=== PATIENT | female | born 1970 | race Two or more races ===

== ENCOUNTER → 2024-07-09 | Outpatient (CLI) | payer MEDICAID, SELFPAY ==
--- NOTE | 2024-07-09 | XR_ITS ---
Examination: Upper GI series with KUB Fluoroscopy 15 spot fluoroscopic films of the esophagus and stomach AP RPO abdomen films Exam date and time: February 07, 2024 0950 hours INDICATIONS: Chest congestion postnasal drainage 2 months TECHNIQUE AND FINDINGS: Transcribing Operators Supervisor AP supine abdomen single view Patient swallowed thin barium with 15 spot films obtained of the esophagus stomach and duodenal bulb and sweep Fluoroscopy 0.20 minutes Primary peristaltic esophageal waves Mild gastroesophageal reflux There is no stricture at the gastroesophageal junction No gastric mass deformity or ulceration Duodenal bulb expands symmetrically Duodenal sweep unremarkable IMPRESSION: Mild gastroesophageal reflux, there is no stricture at the gastroesophageal junction No gastric mass deformity or ulceration Negative for duodenitis
== END | disposition home or self-care (01) ==
PROVIDERS: PCP Registered Nurse Community Health; Referring Provider Registered Nurse Community Health; Visit Provider Registered Nurse Community Health
DX: K21.9 Gastro-esophageal reflux disease without esophagitis (principal)
CPT/HCPCS: 74240

== ENCOUNTER → 2024-08-21 | Outpatient (CLI) | payer MEDICAID, SELFPAY ==
[2024-08-20 16:56] LABS: HCG Qualitative,Urine Negative
--- NOTE | 2024-08-21 11:00 | XR_ITS ---
Examination: CT chest with intravenous contrast 2-D sagittal and coronal reconstructions Exam date and time: August 21, 2024 1205 hours INDICATIONS: Coughing one year shortness of breath CTDI:vol (mGy) 9.12 DLP: (mGycm) 334 Technique: Multiple axial sections of the thorax have been obtained. Sections have been obtained, 3 mm slice thickness. Mediastinal and lung density settings have been obtained. Intravenous contrast administered, 60 cc [id number]-370. 2-D sagittal, coronal images obtained. Low dose protocols were performed. One or more of the following dose reduction techniques were used; automated exposure control, adjustment of the mA and/or KV according to patient size, use of iterative reconstruction technique. Findings: No thoracic aortic aneurysmal dilatation Pulmonary artery segments are not enlarged No paratracheal tracheobronchial or bronchopulmonary adenopathy No pneumonia, pulmonary edema, pleural disease or pulmonary mass lesions Diffuse significant fatty infiltration throughout the liver Contracted gallbladder No pancreatic mass IMPRESSION: No mediastinal lymphadenopathy No pneumonia, pulmonary edema, pleural disease or pulmonary nodules
== END | disposition home or self-care (01) ==
PROVIDERS: PCP Registered Nurse Community Health; Referring Provider Registered Nurse Community Health; Visit Provider Registered Nurse Community Health
DX: R05.9 Cough, unspecified (principal); Z32.00 Encounter for pregnancy test, result unknown
CPT/HCPCS: 71260; 81025; A4649; Q9967

== ENCOUNTER 2025-01-26 09:58 | Emergency (ER) | payer MEDICAID, SELFPAY ==
[2025-01-26 11:01] VITALS: BP 134/87; PULSE 94; RESP 14; TEMP 37.1; O2SAT 99
--- NOTE | 2025-01-26 11:10 | XR_ITS ---
Examination: CT abdomen and pelvis without contrast. Coronal 3-D reconstructions. Sagittal 2-D reconstructions. Date and time of exam:January 26, 2025 1126 hrs. Indications: Mid abdominal pain beginning 2 weeks ago Comparison: 04/22/2013 CTDI: vol (mGy): 11.6 DLP: (mGycm): 585 Technique: Axial images of the abdomen have been obtained, 3 mm slice thickness Intravenous contrast material has not been administered. Low dose protocols were performed. One or more of the following dose reduction techniques were used; automated exposure control, adjustment of the mA and/or KV according to patient size, use of iterative reconstruction technique. Findings: No focal liver or splenic lesions No gallstones No pancreatic or adrenal mass No renal or ureteral calculi, no hydronephrosis Aorta normal size No pericecal inflammatory change Normal appendix No bowel obstruction No diverticulitis Bilateral pelvic cyst, on the right side 4 cm, on the left side 3.5 cm Urinary bladder intact Impression: No renal or ureteral calculi, no hydronephrosis Normal appendix No bowel obstruction No diverticulitis Bilateral pelvic cysts, consider pelvic sonography follow-up
--- NOTE | 2025-01-26 11:11 | EDNOTE_ITS ---
ED Abdominal Pain RME/HPI General Chief Complaint: Nausea/Vomiting/Diarrhea Stated complaint: N/VOMITING X2WKS Time seen by provider: 01/26/25 10:52 Arrival date/time: 01/26/25 09:58 This is a case of a 54-year-old female who came into the emergency room due to abdominal pain mainly on the epigastric area burning in character associated with nausea vomiting for 2 weeks worsening of the symptoms this patient decided to start consult here in the emergency room Limitations: no limitations Related Data Previous Rx's ?Medication ?Instructions ?Recorded famotidine 20 mg tablet 20 mg PO QDAY 30 days #30 ta bs 01/26/25 hydrocodone 5 mg-acetaminophen 325 1 tab PO Q6H PRN pa in #10 tabs 01/26/25 mg tablet omeprazole 40 mg capsule,delayed 40 mg PO QDAY 10 days #10 caps 01/26/25 release ondansetron 4 mg disintegrating 4 mg PO Q8H PRN nausea and 01/26/25 tablet vomiting #20 tabs Allergies Allergy/AdvReac Type Severity Reaction Status Date / Time No Known Allergies Allergy Unverified 01/26/25 11:11 Review of Systems Review of Systems Systems Reviewed: All systems reviewed, normal except as documented Constitutional Constitutional: Reports system reviewed and no additional complaints, except as documented ENT Ears, Nose, Mouth, and Throat: Denies dysphagia and Denies odynophagia Cardiovascular Cardiovascular: Reports system reviewed and no additional complaints, except as documented and Reports as per HPI Respiratory Respiratory: Reports system reviewed and no additional complaints, except as documented and Reports as per HPI Gastrointestinal Gastrointestinal: Reports system reviewed and no additional complaints, except as documented, Reports as per HPI, Reports abdominal pain, Denies belching, Denies bloating, Denies change in bowel habits, Denies change in stool character, Denies coffee ground emesis, Denies constipation, Denies cramping, Denies diarrhea, Denies dyspepsia, Denies dysphagia, Denies early satiety, Denies excessive flatus, Denies fecal incontinence, Denies heartburn, Denies hematemesis, Denies hematochezia, Denies loose stools, Denies melena, Reports nausea, Denies odynophagia, Denies tenesmus and Reports vomiting Musculoskeletal Musculoskeletal: Reports system reviewed and no additional complaints, except as documented and Reports as per HPI Neurologic Neurologic: Reports system reviewed and no additional complaints, except as documented and Reports as per HPI Past Medical History Social History SMOKING STATUS: Never smoker ED Exam General Limitations: Present no limitations General appearance: Present alert and in no apparent distress Head Head exam: Present atraumatic, normocephalic and normal inspection Eye Eye exam: Present normal appearance, PERRL and EOMI ENT ENT exam: Present normal exam, normal oropharynx and mucous membranes moist Neck Neck exam: Present normal inspection, full ROM and trachea midline Chest Chest inspection: Present normal inspection and symmetric chest wall rise Respiratory Respiratory exam: Present normal lung sounds bilaterally; Absent respiratory distress, wheezes, stridor, accessory muscle use or prolonged expiratory phase Cardiovascular Cardiovascular exam: Present regular rate, normal rhythm and normal heart sounds; Absent bradycardia, tachycardia, irregular rhythm or systolic murmur Abdominal Exam Abdominal exam: Present soft, tenderness (Mild tenderness on the epigastric area no guarding no rebound no rigidity negative psoas negative straight or negative Rovsing's negative McBurney's negative Gupta sign negative CVA tenderness) and normal bowel sounds; Absent distention, guarding, rebound, rigidity, diminished bowel sounds, hyperactive bowel sounds, hypoactive bowel sounds, organomegaly, psoas sign, obturator sign, Gupta's sign, Rovsing's sign or tenderness at McBurney's Point Abdominal tenderness: Present epigastrium and mild Extremities Exam Extremities exam: Present normal inspection and full ROM Back Exam Back exam: Present normal inspection and full ROM Neurological Exam Neurological exam: Present alert, oriented X3, CN II-XII intact, normal gait and reflexes normal; Absent motor sensory deficit Psychiatric Psychiatric exam: Present normal affect and normal mood Skin Skin exam: Present warm, dry, intact and normal color Course Quality Measures none Orders Category Date Time Status CT abdomen pelvis wo con Stat Exams 01/26/25 11:10 Completed US pelvic complete Stat Exams 01/26/25 13:52 Completed CBC Stat Lab 01/26/25 11:42 Completed Comprehensive Metabolic Panel Stat Lab 01/26/25 11:42 Completed HCG Qualitative,Urine Stat Lab 01/26/25 11:54 Completed Lipase Stat Lab 01/26/25 11:42 Completed Urinalysis Stat Lab 01/26/25 11:54 Completed Famotidine [Pepcid] Med 01/26/25 11:10 Discontinued 40 mg PO X1 ONE Ketorolac Inj [Toradol Inj] Med 01/26/25 16:17 Discontinued 30 mg IM X1 ONE Lidocaine 2% Viscous [Xylocaine 2% Viscous] Med 01/26/25 11:10 Discontinued 15 ml PO X1 ONE Ondansetron Odt [Zofran Odt] Med 01/26/25 11:10 Discontinued 4 mg PO X1 ONE Ondansetron Odt [Zofran Odt] Med 01/26/25 16:17 Discontinued 4 mg PO X1 ONE mg Hyd/Al Hyd/Liam Susp [Maalox Susp] Med 01/26/25 11:10 Discontinued 30 ml PO X1 ONE Vital Signs Vital signs: Vital Signs Temperature 98.7 F 01/26/25 11:01 Pulse Rate 94 01/26/25 11:01 Respiratory Rate 14 01/26/25 11:01 Blood Pressure 134/87 H 01/26/25 11:01 Pulse Oximetry (%) 99 01/26/25 11:01 Oxygen Delivery Method Room Air 01/26/25 11:01 Oxygen saturation is 99% in room air normal Abdominal Pain MDM MDM Narrative MDM Narrative:: This is a case of a 54-year-old female who came into the emergency room due to abdominal pain mainly on the epigastric area burning in character associated with nausea vomiting for 2 weeks worsening of the symptoms this patient decided to start consult here in the emergency room physical examination patient is awake alert oriented not in distress nontoxic looking patient is not febrile not tachycardic not tachypneic not hypoxic abdominal exam is benign nonsurgical mild tenderness in the epigastric area no guarding no rebound no rigidity negative psoas negative straight or negative Rovsing's negative McBurney's negative Gupta sign negative CVA tenderness blood test showed no leukocytosis no anemia kidney and liver function is normal no electrolyte imbalance patient urinalysis is normal lipase is normal patient is not patient CT scan showed normal except for pelvic cysts ultrasound showed noted to have right ovarian cyst patient was given a GI cocktail and Zofran still with pain thus followed with Toradol and Zofran again patient condition markedly improved and improved and resolved patient will follow-up with PCP in 2 days for reevaluation and to be referred to GI consult for gastritis for possible EGD modified diet was advised patient will also see OB adult neuropsychologist for ovarian cyst for any worsening symptoms or any emergent concerns she will return to the emergency room immediately or call 911 patient was prescribed with omeprazole and Pepcid for gastritis Zofran for vomiting and [place] for pain Patient was discharged with comfortable condition walking with stable gait. Patient verbalized no further complains explained diagnosis and answered patient question. Patient is comfortable with the proposed management plan including the need to follow up with his/her primary care physician and any specialist if applicable Discussed patient for any urgent condition or worsening sx, He/She needed to go to emergency room immediately or call 911. Patient acknowledge the responsibility to follow up as instructed and to monitor her/his symptoms. For any persistence of the symptoms for more than 3-5 days return precaution advised. Discussed the result of the test and was given printed discharge instruction Patient data External records reviewed:: [facility] [place] previous records Clinical information provided by:: patient Social determinants that could affect healthcare access:: none Patient has the following chronic illnesses:: None How is presenting disease/condition affected by chronic disease/condition?: no chronic disease Evaluation data The following diagnostics were reviewed and interpreted by me:: lab results and radiology exam(s) Lab and/or radiology exams considered but not ordered:: Reviewed Interpretation Summary: None Medications / Prescriptions Medications or Prescriptions considered but not ordered:: Given Medication administrations:: Medication Administration History Discontinued Medications Al Hydrox/Mg Hydrox/Simethicone (Mg Hyd/Al Hyd/Liam (Maalox Reg) Susp 30 Ml Udc) 30 ml PO X1 ONE Stop: 01/26/25 11:11 Last Admin: 01/26/25 11:15 Dose: 30 ml Documented By: OLEKSANDR Famotidine (Famotidine 20 Mg Tablet) 40 mg PO X1 ONE Stop: 01/26/25 11:11 Last Admin: 01/26/25 11:15 Dose: 40 mg Documented By: OLEKSANDR Ketorolac Tromethamine (Ketorolac Inj 60 Mg/2 Ml Vial) 30 mg IM X1 ONE Stop: 01/26/25 16:18 Lidocaine HCl (Lidocaine Viscous 2% 15 Ml Udc) 15 ml PO X1 ONE Stop: 01/26/25 11:11 Last Admin: 01/26/25 11:18 Dose: 15 ml Documented By: OLEKSANDR Ondansetron HCl (Ondansetron Odt 4 Mg Tabrap) 4 mg PO X1 ONE; Protocol Stop: 01/26/25 11:11 Last Admin: 01/26/25 11:15 Dose: 4 mg Documented By: OLEKSANDR Ondansetron HCl (Ondansetron Odt 4 Mg Tabrap) 4 mg PO X1 ONE; Protocol Stop: 01/26/25 16:18 Given Consultations Consultation(s) initiated? (list below): No Diagnosis Differential diagnosis abdominal pain: abdominal pain, acute appendicitis, calculus of kidney and diverticulitis Most likely diagnosis given after review of the tests above:: Gastritis ovarian cyst Admission Indicated Admission indicated?: not indicated Explain why admission is indicated or not indicated:: Not indicated Admission Request Was there a request for admission?: No Admission Attestation Admission request attestation: Not indicated Disposition Plan Disposition Plan: Discharge Discharge Attestation Discharge Attestation: The patient and all family members were given an opportunity to ask questions and understood the discharge instructions. Discharge instructions specifically effects, indications for sooner follow up or return to the emergency department, and the expected course of current diagnosis. Patient condition: Stable Discharge Plan Plan Patient Disposition: HOME (Self Care) Patient condition on transfer: Stable Prescriptions/Referrals Prescriptions/Med Rec: New omeprazole 40 mg capsule,delayed release(DR/EC) 40 mg PO QDAY 10 Days Qty: 10 0RF famotidine 20 mg tablet 20 mg PO QDAY 30 Days Qty: 30 0RF ondansetron 4 mg tablet,disintegrating 4 mg PO Q8H PRN (Reason: nausea and vomiting) Qty: 20 0RF hydrocodone-acetaminophen 5-325 mg tablet 1 tab PO Q6H MDD MAX 4 TABS PER DAY PRN (Reason: pain) Qty: 10 0RF Referrals: Anju Thorne FNP [Primary Care Provider] - In 1 week Problem List Clinical Impression: Abdominal pain, Gastritis, Ovarian cyst Patient/Caregiver Discharge Instructions Education Materials: Abdominal Pain, ED Gastritis (Adult), ED Ovarian Cyst Additional Instructions: Follow-up with your primary care physician in 2 days for reevaluation and to be referred to OB adult neuropsychologist for further evaluation and treatment of ovarian cyst and to be referred to property management intern for gastritis for possible EGD avoid skipping of meals avoid spicy food avoid fatty fried high cholesterol food avoid coffee soda or alcohol worsening symptoms recurrence of symptoms persistence of symptoms or any emergent concern return to the emergency room immediately or call 911 Print Language: Turkish Stand Alone Forms: Zeina Award Info., Patient Portal Info Letter RUMA/PARKER Supervising Physician PA/ENVIRONMENTAL FIELD TEAM MEMBER Supervising Physician: dr cameron
[2025-01-26] MEDS: FAMOTIDINE 20 MG TABLET 40 MG PO (11:15)
[2025-01-26] MEDS: MG HYD/AL HYD/SIME (Maalox Reg) SUSP 30 ML UDC PO (11:15)
[2025-01-26] MEDS: ONDANSETRON ODT 4 MG TABRAP PO ×2 (11:15→17:10)
[2025-01-26] MEDS: LIDOCAINE VISCOUS 2% 15 ML UDC PO (11:18)
[2025-01-26 12:04] LABS: Basophils % (Auto) 0 % (0-2.5); Eosinophils # (Auto) 0.2 Thou/mm3 (0.0-0.5); Eosinophils % (Auto) 1 % (0-10); Hematocrit 41.9 % (36.0-46.0); Hemoglobin 14.1 g/dL (12.0-16.0); Immature Granulocytes % (Auto) 1 % (0-0); Immature Granulocytes Auto 0.06 Thou/mm3 (0.00-0.00); Lymphocytes # (Auto) 3.5 Thou/mm3 (1.0-4.8); Lymphocytes % (Auto) 30 % (10-50); Mean Corpuscular HGB Conc 33.7 g/dl (31.0-37.0); Mean Corpuscular Hemoglobin 29.9 pg (25.0-35.0); Mean Corpuscular Volume 89 fL (80-100); Monocytes # (Auto) 0.8 Thou/mm3 (0.0-0.8); Monocytes % (Auto) 7 % (0-12); Neutrophils # (Auto) 7.3 Thou/mm3 (1.8-7.7); Neutrophils % (Auto) 61 % (37-80); Nucleated Red Blood Cell % 0 /100 WBC (0); Platelet Count 289 Thou/mm3 (140-440); RDW Standard Deviation 42.9 fL (36.4-46.3); Red Blood Count 4.72 Miln/mm3 (4.00-5.20); White Blood Count 11.8 Thou/mm3 (3.6-11.0)
[2025-01-26 12:10] LABS: Collection Type, Urine Clean Catch
[2025-01-26 12:24] LABS: Bilirubin,Urine Negative (Negative); Blood,Urine Negative (Negative); Clarity,Urine Clear (Clear/Hazy); Color,Urine Yellow (Lt Yel-Yel); Glucose, Urine Negative (Negative); Ketones,Urine Negative (Negative); Leukocyte Esterase,Urine Negative (Negative); Nitrite,Urine Negative (Negative); PH,Urine 5.5 (5.0-7.0); Protein,Urine Negative (Neg - Trace); RBC,Urine 4 /hpf (0-3); Specific Gravity,Urine 1.024 (1.001-1.035); Squamous Epithelial Cell,Urine 14 /hpf (0-5); Urobilinogen,Urine Negative mg/dL (0.0-1.0); WBC,Urine 1 /hpf (0-5)
[2025-01-26 12:26] LABS: HCG Qualitative,Urine Negative
[2025-01-26 12:30] LABS: Alanine Aminotransferase 29 U/L (10-49); Albumin, Serum 4.4 gm/dL (3.5-5.0); Albumin/Globulin Ratio 1.6 (1.2-2.2); Alkaline Phosphatase 94 U/L (46-116); Anion Gap 8 (7-16); Aspartate Amino Transferase 31 U/L (0-34); BUN/Creatinine Ratio 16 Ratio (12-20); Bilirubin,Total 0.6 mg/dL (0.3-1.2); Blood Urea Nitrogen 13 mg/dL (9-23); Calcium 8.8 mg/dL (8.3-10.6); Calcium (Corrected) 8.8 mg/dL (8.5-10.1); Carbon Dioxide 26.2 mMol/L (20.0-31.0); Chloride 105 mMol/L (98-107); Creatinine (Component) 0.8 mg/dL (0.6-1.3); Globulin 2.7 gm/dL (2.3-3.5); Glucose 87 mg/dL (74-106); Lipase 40 U/L (12-53); Osmolality,Calculated 276 (275-295); Potassium 3.5 mMol/L (3.4-5.1); Sodium 139 mMol/L (136-145); Total Protein 7.1 gm/dL (5.7-8.2); eGFR > 60 See Note
--- NOTE | 2025-01-26 13:52 | XR_ITS ---
Examination: Pelvic ultrasound, transabdominal, complete Technique: Transabdominal ultrasound of the pelvis performed using grayscale imaging Date and time of exam: January 26, 2025, 1449 hrs. Indications: Pelvic pain beginning one week ago Findings: Uterus 9.1 cm endometrial stripe 0.82 cm, no uterine mass Right ovary 6.0 cm arterial flow 38 x 41 mm cyst Left ovary obscured by bowel gas Impression: Normal right ovarian cyst, 3.8 x 3.5 x 4.1 cm
--- NOTE | 2025-01-26 14:32 | PC.NURSE ---
Called u/s, patient hydrated and bladder is full for u/s exam, per tech will come shortly to get patient for exam
[2025-01-26 15:26] VITALS: BP 108/73; PULSE 78; RESP 18; TEMP 36.7; O2SAT 99
[2025-01-26] MEDS: KETOROLAC INJ 60 MG/2 ML VIAL 30 MG IM (17:10)
== END 2025-01-26 17:25 | disposition home or self-care (01) ==
PROVIDERS: Nurse Practitioner Family; Emergency Provider Emergency Medicine; PCP Registered Nurse Community Health
DX: K29.70 Gastritis, unspecified, without bleeding (principal); N83.201 Unspecified ovarian cyst, right side; N94.89 Other specified conditions associated with female genital organs and menstrual cycle
CPT/HCPCS: 36415; 74176; 76856; 80053; 81001; 81025; 83690; 85025; 96372; 99284; J1885; J3490; Q0162; A9270

== ENCOUNTER → 2025-02-21 | Outpatient (CLI) | payer MEDICAID, SELFPAY ==
--- NOTE | 2025-02-21 11:00 | XR_ITS ---
Examination: Abdomen sonogram, complete Date and time of exam: February 21, 2025 1050 hours INDICATIONS: Mid abdominal pain beginning one month ago, diagnosis fatty liver. Technique: Multiple real-time grayscale transabdominal sonographic images of the abdomen have been obtained. Findings: Normal gallbladder. Normal common bile duct. Pancreatic head 1.9 cm Aorta not enlarged. Liver 15.7 cm fatty infiltration. Normal hepatopedal portal venous flow. Patent IVC. Right kidney 9.4 cm renal cortex 1.8 cm Left kidney 9.9 cm cortex 1.6 cm Mild renal scar formation Spleen 9.1 cm IMPRESSION: Normal gallbladder Normal common bile duct Liver normal size fatty infiltration
== END | disposition home or self-care (01) ==
PROVIDERS: PCP Registered Nurse Community Health; Referring Provider Registered Nurse Community Health; Visit Provider Registered Nurse Community Health
DX: K76.0 Fatty (change of) liver, not elsewhere classified (principal)
CPT/HCPCS: 76700

== ENCOUNTER → 2025-05-12 | Outpatient (CLI) | payer MEDICAID, SELFPAY ==
--- NOTE | 2025-05-12 11:56 | XR_ITS ---
EXAMINATION: Thyroid sonography TECHNIQUE: Grayscale sonographic images thyroid lobes Date and time: May 12, 2025, 12 noon INDICATIONS: Inflamed thyroid and neck months FINDINGS: Right thyroid 3.4 cm Left lobe. 2.6 cm No thyroid nodules IMPRESSION: Negative study
== END | disposition home or self-care (01) ==
PROVIDERS: PCP Registered Nurse Community Health; Referring Provider Registered Nurse Community Health; Visit Provider Registered Nurse Community Health
DX: E03.9 Hypothyroidism, unspecified (principal)
CPT/HCPCS: 76536

== ENCOUNTER → 2025-06-12 | Outpatient (CLI) | payer MEDICAID, SELFPAY ==
--- NOTE | 2025-06-12 08:30 | XR_ITS ---
Examination: Screening digital mammography, bilateral Computer aided detection 3-D breast Tomosynthesis, bilateral Date and time of exam: June 12, 2025, 0826 hours, compared to mammograms dating to January 02, 2014 Indication: Screening Technique: Nonmagnified MLO, CC views of the breasts to been obtained, reconstructed from 3-D Tomosynthesis images. R2 computer aided detection program utilized for evaluation of suspicious masses and/or abnormal calcifications. 3-D Tomosynthesis images obtained. Findings: Scattered areas of fibroglandular density. Benign calcifications. Intact implants. No interval suspicious masses Impression: BI-RADS category II: Benign Findings. Recommend 1 year follow-up mammogram.
== END | disposition home or self-care (01) ==
LOC: CDIM 08:05
PROVIDERS: Referring Provider Specialist; Visit Provider Specialist
DX: Z12.31 Encounter for screening mammogram for malignant neoplasm of breast (principal); R92.323 Mammographic fibroglandular density, bilateral breasts; R92.1 Mammographic calcification found on diagnostic imaging of breast
CPT/HCPCS: 77063; 77067